=== PATIENT | male | born 1970 | race Caucasian/White ===

== ENCOUNTER 2020-08-05 22:54 | Emergency (ER) | payer SELFPAY ==
[~2020-08-05] VITALS: Ht 180.3 cm; Wt 77.0 kg
[2020-08-05] MEDS ORDERED: NORVASC5 M1 PO (23:13)
[2020-08-05] MEDS ORDERED: METOPROL TAR25 MG PO (23:13)
[2020-08-06] MEDS ORDERED: IBUPROFEN600 MG PO (00:38)
[2020-08-06] MEDS ORDERED: KEFLEX500 MG PO (00:38)
[2020-08-06 00:45] VITALS: BP 130/90
== END 2020-08-06 00:47 | disposition home or self-care (01) | DRG 605 ==
LOC: ED 22:54
PROC: 0HQEXZZ Repair Left Lower Arm Skin, External Approach (ICD-10-PCS; principal; 2020-08-05)
DX: S51.012A Laceration without foreign body of left elbow, initial encounter (principal); S20.212A Contusion of left front wall of thorax, initial encounter; I10 Essential (primary) hypertension; W20.8XXA Other cause of strike by thrown, projected or falling object, initial encounter; Y93.89 Activity, other specified; Y92.009 Unspecified place in unspecified non-institutional (private) residence as the place of occurrence of the external cause; Z86.79 Personal history of other diseases of the circulatory system